=== PATIENT | female | born 1940 | race Caucasian/White ===

== ENCOUNTER 2017-01-27 13:24 | Emergency (ER) | payer MEDICARE ==
[~2017-01-27] VITALS: Ht 165.1 cm; Wt 74.4 kg
[~2017-01-27 13:24] MED LIST: HYDROXYZINE HCL50 MG PO; PREDNISONE5 M1 DOB
== END 2017-01-27 15:30 | disposition home or self-care (01) ==
LOC: CED 13:24
DX: T78.3XXA Angioneurotic edema, initial encounter (principal); Z88.1 Allergy status to other antibiotic agents; I10 Essential (primary) hypertension; Z79.899 Other long term (current) drug therapy
CPT/HCPCS: 99283